=== PATIENT | female | born 1995 | race Caucasian/White ===

== ENCOUNTER 2018-01-04 16:54 | Emergency (ER) | payer SELFPAY ==
[~2018-01-04] VITALS: Ht 160 cm; Wt 70.0 kg
[2018-01-04 16:56] VITALS: BP 139/92; PULSE 72; RESP 14; TEMP 98.3; O2SAT 100
--- NOTE | 2018-01-04 19:04 | PD ---
HPI Chief Complaint: Inventory Associate Problem/Complaint Time Seen by Provider: 18:37 Travel History International Travel<30 days: No Contact w/Intl Traveler<30days: No Traveled to known affect area: No History of Present Illness HPI The patient was seen and examined in the presence of the nurse. This patient complains of vaginal bleeding. She has had some mild vaginal bleeding for the last 10 days. It was time for her menstrual period by her. Usually ends after a week. She was concerned because the bleeding is longer than usual. She does not have presyncopal symptoms. No pelvic pain or vaginal discharge other than the bleeding. Symptom severity is mild. No alleviating factors. No exacerbating factors. She is sexually active not using protection PFS Past Medical History Medical History: Denies Significant Hx Diminished Hearing: No Tetanus Vaccination: Unknown Influenza Vaccination: No ?: Unknown LMP: "CURRENTLY BLEEDING 10 DAYS" : 0 Past Surgical History Surgical History: No Previous Surgery Social History Alcohol Use: No Tobacco Use: No Substance Use: No Allergies-Medications (Allergen,Severity, Reaction): Coded Allergies: No Known Allergies (Unverified , 01/04/18) Reported Meds & Prescriptions Reported Meds & Active Scripts Active No Active Prescriptions or Reported Medications Review of Systems General / Constitutional: No: Fever Eyes: No: Visual changes HENT: No: Headaches Cardiovascular: No: Chest Pain or Discomfort Respiratory: No: Shortness of Breath Gastrointestinal: No: Abdominal Pain Genitourinary: Positive: Vaginal Bleeding, No: Dysuria Musculoskeletal: No: Pain Skin: No Rash Neurologic: No: Weakness Psychiatric: No: Depression Endocrine: No: Polydipsia Hematologic/Lymphatic: No: Easy Bruising Physical Exam Narrative GENERAL: Well-nourished, well-developed patient. SKIN: Focused skin assessment warm/dry. HEAD: Normocephalic. EYES: No scleral icterus. No injection or drainage. NECK: Supple, trachea midline. No JVD or lymphadenopathy. CARDIOVASCULAR: Regular rate and rhythm without murmurs, gallops, or rubs. RESPIRATORY: Breath sounds equal bilaterally. No accessory muscle use. GASTROINTESTINAL: Abdomen soft, non-tender, nondistended. MUSCULOSKELETAL: No cyanosis, or edema. BACK: Nontender without obvious deformity. No CVA tenderness. Pelvic: Speculum exam was done. There is a scant bit of blood in the vault. No other discharge or lesions seen. No adnexal tenderness Data Data Last Documented VS Vital Signs Date Time Temp Pulse Resp B/P (MAP) Pulse Ox O2 Delivery O2 Flow Rate FiO2 01/04/18 18:19 16 01/04/18 16:56 98.3 72 139/92 (108) 100 Room Air Orders Orders Ed Urine Pregnancytest Poc (01/04/18 18:52) MDM Medical Decision Making Medical Screen Exam Complete: Yes Emergency Medical Condition: Yes Medical Record Reviewed: Yes Differential Diagnosis Threatened , ectopic, dysfunctional uterine bleeding Narrative Course I have reviewed the patient's electronic medical record. Urine is negative Vitals are normal and has soft benign nontender abdomen without pain No sign of infection on exam Stable for outpatient [facility] follow-up Diagnosis Primary Impression: Vaginal bleeding Additional Instructions: Follow-up with [facility] Med/Other Pt SpecificInfo: Other Scripts No Active Prescriptions or Reported Meds Disposition: 01 DISCHARGE HOME Condition: Stable Jonny Maza MD Jan 04, 2018 19:04
== END 2018-01-04 19:24 | disposition home or self-care (01) ==
LOC: NEPD 16:54
DX: N93.9 Abnormal uterine and vaginal bleeding, unspecified (principal)
CPT/HCPCS: 84703; 99284